=== PATIENT | female | born 2000 | race Asian ===

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

== ENCOUNTER → 2022-02-15 | Outpatient (REF) | payer OTHER | LOC: M WUC 12:38 | PROVIDERS: ATTEND Physician Assistant | DX: N39.0 Urinary tract infection, site not specified (principal) ==